=== PATIENT | female | born 1960 | race Hispanic/Latino ===

== ENCOUNTER 2021-08-03 16:06 | Emergency (ER) | payer OTHER ==
[~2021-08-03] VITALS: Ht 162.6 cm; Wt 77.0 kg
[2021-08-03 17:40] VITALS: BP 150/85
[2021-08-03] MEDS ORDERED: GENTAMICIN SULF5 ML OS (18:21)
== END 2021-08-03 18:52 | disposition home or self-care (01) | DRG 125 ==
LOC: ED 16:06
DX: H10.9 Unspecified conjunctivitis (principal)

== ENCOUNTER 2024-03-23 18:03 | Emergency (ER) | payer OTHER ==
[~2024-03-23] VITALS: Ht 162.6 cm; Wt 69.0 kg
[~2024-03-23 18:03] MED LIST: GENTAMICIN SULF5 ML OS
[2024-03-23 18:08] VITALS: BP 156/71
[2024-03-23] MEDS ORDERED: DiphenhydrAMINE HCL 25 MG CPLT PO ONE (18:20)
[2024-03-23] MEDS ORDERED: FAMOTIDINE 20 MG/TAB PO ONE (18:20)
[2024-03-23] MEDS ORDERED: methylPREDNISolone SODIUM SUCC 125 MG/2 ML SDV IM ONE (18:20)
[2024-03-23] MEDS ORDERED: BENADRYL25 M1 PO (18:33)
[2024-03-23] MEDS ORDERED: PEPCID20 MG PO (18:33)
[2024-03-23] MEDS ORDERED: EPIPEN 2-P0.3 MG/0.3 SC (18:33)
[2024-03-23 18:42] VITALS: BP 156/71
== END 2024-03-23 19:10 | disposition home or self-care (01) | DRG 916 ==
LOC: ED 18:03 → EDBD 18:03 → ED 19:10
DX: T78.40XA Allergy, unspecified, initial encounter (principal); X58.XXXA Exposure to other specified factors, initial encounter; Y99.0 Civilian activity done for income or pay